=== PATIENT | male | born 2000 | race Two or more races ===

== ENCOUNTER 2023-06-16 15:50 | Emergency (ER) | payer OTHER ==
[~2023-06-16] VITALS: Ht 170.2 cm; Wt 68.0 kg
[2023-06-16 18:40] LABS: HEMATOCRIT 42.3 % (39.0-48.0); HEMOGLOBIN 14.5 g/dL (13-16.00); MEAN CELL VOLUME 86.7 fL (80.0-100.00); MEAN CORPUSCULAR HEMOGLOBIN 29.6 pg (27.00-32.0); MEAN CORPUSCULAR HGB CONC 34.2 g/dl (32.0-36.0); PLATELET COUNT 249 K/uL (150-450); RED BLOOD COUNT 4.88 M/uL (4.00-6.00)
[2023-06-16 19:31] LABS: URINE APPEARANCE Cloudy; URINE BILIRRUBIN Negative (NEGATIVE); URINE BLOOD Large; URINE COLOR Orange; URINE GLUCOSE Negative (NEGATIVE); URINE LEUKOCYTE Trace; URINE NITRATE Negative; URINE PROTEIN Trace (NEGATIVE); URINE UROBILINOGEN 0.2 E.U./dl
[2023-06-16 19:34] LABS: URINE BACTERIA 35.2 uL (0.0-1933); URINE WBC 19.9 uL (0.0-23.2)
== END 2023-06-16 20:55 | disposition home or self-care (01) ==
LOC: ER 15:50
PROVIDERS: Emergency Medicine
DX: M54.9 Dorsalgia, unspecified (principal); N23 Unspecified renal colic; N20.1 Calculus of ureter